=== PATIENT | male | born 1960 | race Caucasian/White ===

== ENCOUNTER 2019-06-15 21:23 | Emergency (ER) | payer BC ==
[~2019-06-15] VITALS: Ht 185.4 cm; Wt 93.9 kg
[2019-06-15] MEDS ORDERED: NEXIUM40 MG PO (21:46)
[2019-06-15] MEDS ORDERED: AMLODIPINE BESY10 MG PO (21:46)
[2019-06-15] MEDS ORDERED: LIPITOR 20 MG T20 M1 PO (21:46)
[2019-06-15] MEDS ORDERED: BENICAR40 MG PO (21:47)
[2019-06-15] MEDS ORDERED: BYSTOLIC 5 MG5 M1 PO (21:47)
[2019-06-15] MEDS ORDERED: HYDROCHLOROTHIA25 M2 PO (21:47)
[2019-06-15 22:50] LABS: INFLUENZA A ANTIGEN Negative (Negative); INFLUENZA B ANTIGEN Negative (Negative)
[2019-06-15] MEDS ORDERED: CLEOCIN HCL150 MG PO (22:57)
[2019-06-15 23:06] VITALS: BP 114/66
== END 2019-06-15 23:07 | disposition home or self-care (01) ==
LOC: M.ERS 21:23
PROVIDERS: Nurse Practitioner Family
DX: T17.908A Unspecified foreign body in respiratory tract, part unspecified causing other injury, initial encounter (principal); R50.82 Postprocedural fever; I10 Essential (primary) hypertension; Z88.0 Allergy status to penicillin; Y92.89 Other specified places as the place of occurrence of the external cause